=== PATIENT | female | born 1960 | race Caucasian/White ===

== ENCOUNTER 2020-03-25 12:23 | Emergency (ER) | payer BC, OTHER ==
[~2020-03-25] VITALS: Ht 162.6 cm; Wt 68.0 kg
[2020-03-25 13:47] VITALS: BP 114/68
== END 2020-03-25 13:47 | disposition home or self-care (01) ==
LOC: ER 12:23
DX: S61.012A Laceration without foreign body of left thumb without damage to nail, initial encounter (principal); W26.0XXA Contact with knife, initial encounter; Y93.89 Activity, other specified; Y92.89 Other specified places as the place of occurrence of the external cause; Y99.9 Unspecified external cause status